=== PATIENT | female | born 1960 | race Caucasian/White ===

== ENCOUNTER 2017-02-26 11:24 | Emergency (ER) | payer OTHER ==
[~2017-02-26] VITALS: Ht 162.6 cm; Wt 61.0 kg
[~2017-02-26 11:24] MED LIST: Z.0.NO CURRENT MEDS
[2017-02-26 11:30] VITALS: BP 175/95; PULSE 98; RESP 16; TEMP 98.5; O2SAT 98
--- NOTE | 2017-02-26 11:58 | PD ---
HPI Chief Complaint: Edema Time Seen by Provider: 11:36 Travel History International Travel<30 days: No Contact w/Intl Traveler<30days: No Traveled to known affect area: No History of Present Illness HPI The patient is a 56-year-old female who presents emergency department for left-sided neck swelling and pain. The patient states her symptoms started prior to Megh[place], however, have progressed over the last several days. The patient states she has pain over the left aspect of the face and neck with swelling over the lateral and inferior aspect of the neck. The patient has a history of similar symptoms in the past, approximately 4-5 years ago. The patient states they thought she had lymphoma did several biopsies, however, told her she had a reaction to silicone from previous old, breast implants. She denies any swollen the left axilla denies any fever, chills, or sweats. The patient denies any chest pain or shortness of breath. The patient's primary physician is Dr. Hanley. Symptoms are moderate without any alleviating or exacerbating factors. PFSH Social History Alcohol Use: No Tobacco Use: No Allergies-Medications (Allergen,Severity, Reaction): Coded Allergies: codeine (Unverified Allergy, Severe, VOMITING, 02/26/17) Reported Meds & Prescriptions Reported Meds & Active Scripts Active Reported Probiotic (Lactobacillus Acidophilus) 10 Billion Cell Cap 1 Cap PO DAILY [Menopause Med] Review of Systems Except as stated in HPI: all other systems reviewed are Neg General / Constitutional: No: Fever HENT: Positive: Neck Stiffness, Neck Pain, Masses, No: Lightheadedness, Earache Cardiovascular: No: Chest Pain or Discomfort Respiratory: No: Shortness of Breath Gastrointestinal: No: Nausea, Vomiting Skin: No Rash Hematologic/Lymphatic: Positive: Lymph Node Enlargement (history of previous lymph node enlargement) Physical Exam Narrative GENERAL: Awake, alert, pleasant 56-year-old female who appears her stated age and is in no acute respiratory distress. SKIN: Focused skin assessment warm/dry. HEAD: Atraumatic. Normocephalic. EYES: Pupils equal and round. No scleral icterus. No injection or drainage. ENT: No nasal bleeding or discharge. Mucous membranes pink and moist. Left TM is translucent. Left EAC is clear. Oropharynx reveals cobblestoning but no erythema or exudate. NECK: Trachea midline. No JVD. There is edema and swelling noted over the lateral and inferior aspect of the left neck. Axilla: No significant left axillary lymphadenopathy noted. CARDIOVASCULAR: Regular rate and rhythm. No murmur appreciated. RESPIRATORY: No accessory muscle use. Clear to auscultation. Breath sounds equal bilaterally. GASTROINTESTINAL: Abdomen soft, non-tender, nondistended. Back: No tenderness of the thoracic or lumbar vertebrae. Mild tenderness of the paravertebral muscles. MUSCULOSKELETAL: No obvious deformities. No clubbing. No cyanosis. No edema. NEUROLOGICAL: Awake and alert. No obvious cranial nerve deficits. Motor grossly within normal limits. Normal speech. PSYCHIATRIC: Appropriate mood and affect; insight and judgment normal. Data Data Last Documented VS Vital Signs Date Time Temp Pulse Resp B/P (MAP) Pulse Ox O2 Delivery O2 Flow Rate FiO2 02/26/17 12:54 98 18 157/83 (107) 96 Room Air 02/26/17 11:30 98.5 Orders Orders Complete Blood Count With Diff (02/26/17 11:50) Basic Metabolic Panel (Bmp) (02/26/17 11:50) Chest, Single Ap (02/26/17 ) Ct Soft Tiss Neck W Iv Cont (02/26/17 ) Iohexol 350 Inj (Omnipaque 350 Inj) (02/26/17 12:45) Labs Laboratory Tests Test 02/26/17 12:05 White Blood Count 6.1 TH/MM3 Red Blood Count 4.82 MIL/MM3 Hemoglobin 14.1 GM/DL Hematocrit 42.7 % Mean Corpuscular Volume 88.5 FL Mean Corpuscular Hemoglobin 29.4 PG Mean Corpuscular Hemoglobin Concent 33.1 % Red Cell Distribution Width 12.6 % Platelet Count 258 TH/MM3 Mean Platelet Volume 8.0 FL Neutrophils (%) (Auto) 70.0 % Lymphocytes (%) (Auto) 21.6 % Monocytes (%) (Auto) 5.1 % Eosinophils (%) (Auto) 2.7 % Basophils (%) (Auto) 0.6 % Neutrophils # (Auto) 4.3 TH/MM3 Lymphocytes # (Auto) 1.3 TH/MM3 Monocytes # (Auto) 0.3 TH/MM3 Eosinophils # (Auto) 0.2 TH/MM3 Basophils # (Auto) 0.0 TH/MM3 CBC Comment DIFF FINAL Differential Comment Blood Urea Nitrogen 13 MG/DL Creatinine 0.93 MG/DL Random Glucose 106 MG/DL Calcium Level 9.0 MG/DL Sodium Level 141 MEQ/L Potassium Level 3.7 MEQ/L Chloride Level 106 MEQ/L Carbon Dioxide Level 27.1 MEQ/L Anion Gap 8 MEQ/L Estimat Glomerular Filtration Rate 63 ML/MIN [facility] Medical Decision Making Medical Screen Exam Complete: Yes Emergency Medical Condition: Yes Medical Record Reviewed: Yes Interpretation(s) Last Impressions Chest X-Ray 02/26/17 0000 Signed Impressions: Service Date/Time: Sunday, February 26, 2017 11:57 - CONCLUSION: No acute disease. Chan Kruger MD Laboratory Tests Test 02/26/17 12:05 White Blood Count 6.1 TH/MM3 Red Blood Count 4.82 MIL/MM3 Hemoglobin 14.1 GM/DL Hematocrit 42.7 % Mean Corpuscular Volume 88.5 FL Mean Corpuscular Hemoglobin 29.4 PG Mean Corpuscular Hemoglobin Concent 33.1 % Red Cell Distribution Width 12.6 % Platelet Count 258 TH/MM3 Mean Platelet Volume 8.0 FL Neutrophils (%) (Auto) 70.0 % Lymphocytes (%) (Auto) 21.6 % Monocytes (%) (Auto) 5.1 % Eosinophils (%) (Auto) 2.7 % Basophils (%) (Auto) 0.6 % Neutrophils # (Auto) 4.3 TH/MM3 Lymphocytes # (Auto) 1.3 TH/MM3 Monocytes # (Auto) 0.3 TH/MM3 Eosinophils # (Auto) 0.2 TH/MM3 Basophils # (Auto) 0.0 TH/MM3 CBC Comment DIFF FINAL Differential Comment Blood Urea Nitrogen 13 MG/DL Creatinine 0.93 MG/DL Random Glucose 106 MG/DL Calcium Level 9.0 MG/DL Sodium Level 141 MEQ/L Potassium Level 3.7 MEQ/L Chloride Level 106 MEQ/L Carbon Dioxide Level 27.1 MEQ/L Anion Gap 8 MEQ/L Estimat Glomerular Filtration Rate 63 ML/MIN Differential Diagnosis Differential diagnosis includes reactive lymphadenitis, lymphedema, lymphoma, Pancoast tumor, superior vena cava syndrome, viral syndrome. Narrative Course IV was established, labs are drawn and sent, and the patient was placed on cardiac telemetry monitoring and continuous pulse ox imaging monitoring. Chest x-ray was obtained to evaluate for Pancoast tumor. CT soft tissue neck with IV contrast was ordered to evaluate for possible enlarged lymph node secondary to lymphadenitis versus lymphoma. Chest x-rays unremarkable. CT does reveal enlarged lymph node on the left, may be reactive lymphadenitis versus lymphoma. However, patient does have a history of similar symptoms in the past secondary to reactive lymphadenitis from silicone implant that ruptured. The patient is currently afebrile, does have mild , But no compromise of airway or shortness of breath. Patient will be placed on a short course of antibiotics, is advised to follow-up with her primary physician and may benefit from repeat imaging to evaluate if the lymph node resolves versus once again undergoing biopsy of the lymph node. Patient agrees and understands. She is stable for outpatient follow-up. She will be provided a copy of her CT results at discharge. Diagnosis Primary Impression: Lymphadenitis, acute Patient Instructions: General Instructions Additional Instructions: Please provide the patient a copy of her CT results and labs at discharge. You may benefit from repeat imaging of the affected area versus outpatient biopsy if symptoms persist. Antibiotic as directed. Follow-up with your primary physician. Med/Other Pt SpecificInfo: Prescription(s) given Scripts Cephalexin (Keflex) 500 Mg Cap 500 MG PO Q6H for Infection for 7 Days, #28 CAP 0 Refills Prov: Crispin Arce MD 02/26/17 Disposition: 01 DISCHARGE HOME Condition: Stable Crispin Arce MD Feb 26, 2017 11:58
[2017-02-26 12:12] LABS: AUTOMATED NEUTROPHIL # 4.3 TH/MM3 (1.8-7.7); BASOPHIL % 0.6 % (0.0-2.0); EOSINOPHIL # 0.2 TH/MM3 (0-0.4); EOSINOPHIL % 2.7 % (0.0-4.0); HEMATOCRIT 42.7 % (35.0-46.0); HEMOGLOBIN 14.1 GM/DL (11.6-15.3); LYMPH % 21.6 % (9.0-44.0); LYMPHOCYTE # 1.3 TH/MM3 (1.0-4.8); MEAN CELL VOLUME 88.5 FL (80.0-100.0); MEAN CORPUSCULAR HEMOGLOBIN 29.4 PG (27.0-34.0); MEAN CORPUSCULAR HGB CONC 33.1 % (32.0-36.0); MONO % 5.1 % (0.0-8.0); MONOCYTE # 0.3 TH/MM3 (0-0.9); PLATELET COUNT 258 TH/MM3 (150-450); RED BLOOD COUNT 4.82 MIL/MM3 (4.00-5.30); RED CELL DISTRIBUTION WIDTH 12.6 % (11.6-17.2); WHITE BLOOD COUNT 6.1 TH/MM3 (4.0-11.0)
[2017-02-26 12:22] LABS: BICARBONATE 27.1 MEQ/L (21.0-32.0)
--- NOTE | 2017-02-26 12:24 | RADRPT ---
EXAM DATE/TIME: 02/26/2017 11:57 [facility] COMPARISON: No previous studies available for comparison. INDICATIONS : Pain and swelling to neck, upper chest, shoulders, no known injury, mass MEDICAL HISTORY : None. SURGICAL HISTORY : Right shoulder ENCOUNTER: Initial ACUITY: 2 days PAIN SCORE: 6/10 LOCATION: Bilateral upper chest FINDINGS: A single view of the chest demonstrates the lungs to be symmetrically aerated without evidence of mas s, infiltrate or effusion. The cardiomediastinal contours are unremarkable. Osseous structures are intact. There is a right shoulder prosthesis. CONCLUSION: No acute disease. Chan Kruger MD on February 26, 2017 at 12:21 Board Certified Radiologist. This report was verified electronically.
[2017-02-26] MEDS ORDERED: [UNRECOGNIZED DRUG - OTHER] (12:25)
[2017-02-26 12:26] LABS: CREATININE 0.93 MG/DL (0.50-1.00)
[2017-02-26] MEDS ORDERED: LACTCAP8 PO (12:44)
[2017-02-26] MEDS ORDERED: IOHEXOL 350 MG/ML 10 ML VIAL (for RAD DIAG) IVCONTRAST ONE (12:45)
[2017-02-26 12:54] VITALS: BP 157/83; PULSE 98; RESP 18; O2SAT 96
--- NOTE | 2017-02-26 13:08 | RADRPT ---
EXAM DATE/TIME: 02/26/2017 12:32 [facility] COMPARISON: No previous studies available for comparison. INDICATIONS : Left sided neck pain and swelling. Evaluate for mass. IV CONTRAST: 75 cc Omnipaque 350 (iohexol) IV RADIATION DOSE: 10.68 CTDIvol (mGy) MEDICAL HISTORY : None SURGICAL HISTORY : None. ENCOUNTER: Initial ACUITY: 1 week PAIN SCALE: 5/10 LOCATION: Left neck TECHNIQUE: Volumetric scanning of the neck was performed. Using automated exposure control and adjustment of th e mA and/or kV according to patient size, radiation dose was kept as low as reasonably achievable to obtain optimal diagnostic quality images. DICOM format image data is available electronically for r eview and comparison. FINDINGS: NASOPHARYNX: The nasopharyngeal airway has a normal configuration. No mucosal thickening or mass is seen. OROPHARYNX: The intrinsic muscles of the tongue are symmetric. The tonsillar pillars are intact. The prevertebr al soft tissues are not thickened. LARYNX: The supraglottic, glottic, and infraglottic structures are intact. PARAPHARYNGEAL: The parapharyngeal space is intact. SALIVARY GLANDS: The parotid and submandibular glands are intact. LYMPH NODES: No enlarged or necrotic-appearing nodes. THYROID: There is a 0.7 cm oval smooth low density mass at the right lobe of the thyroid. Otherwise the thyroi d appears normal. BONES: Unremarkable. UPPER CHEST: The lung apices are clear. There is a possible prominent lymph node in the AP window region measuring 1.5 x 1.4 cm. This is seen on the last images obtained of the CT of the neck. CONCLUSION: 1. No focal mass is seen. 2. Small subcentimeter right thyroid nodule. 3. Possible prominent lymph node in the AP window region. Chan Kruger MD on February 26, 2017 at 13:02 Board Certified Radiologist. This report was verified electronically.
[2017-02-26] MEDS ORDERED: CEPH-460 PO (13:41)
== END 2017-02-26 13:52 | disposition home or self-care (01) ==
LOC: PHED 11:24
DX: L04.9 Acute lymphadenitis, unspecified (principal)
CPT/HCPCS: 70491; 71010; 80048; 85025; 99285; Q9967